=== PATIENT | male | born 1965 | race Caucasian/White ===

== ENCOUNTER 2020-11-12 06:59 | Emergency (ER) | payer OTHER ==
[~2020-11-12] VITALS: Ht 188 cm; Wt 117.8 kg
[2020-11-12] MEDS ORDERED: LORazepam 1MG TABLET PO ONE ×2 (07:30→09:00)
[2020-11-12] MEDS ORDERED: LORazepam 1MG TABLET ONE ×2 (07:46→08:46)
--- NOTE | 2020-11-12 09:43 | NUR ---
Pt states "I've been having some health issues that are causing me anxiety or panic attack and I can't sleep." Pt states he stopped taking Cymbalta approx 1 month ago. Pt medicated per SEP, awake and alert on iPad. Pt medicated again. States he was starting to feel "loopy." Lights off to promote rest and educated to try and attempt to sleep.
[2020-11-12 10:29] VITALS: BP 147/73
== END 2020-11-12 10:54 | disposition home or self-care (01) ==
LOC: ED 08:51
DX: F41.1 Generalized anxiety disorder (principal); F51.01 Primary insomnia; K21.9 Gastro-esophageal reflux disease without esophagitis; Z87.891 Personal history of nicotine dependence
CPT/HCPCS: 99283